=== PATIENT | female | born 1930 | race Caucasian/White ===

== ENCOUNTER 2017-04-21 18:10 | Inpatient (IN) | payer OTHER ==
--- NOTE | 2017-04-21 18:23 | EDPHY ---
H & P Smoking Status: Never smoked Time Seen by Provider: 04/21/17 18:15 HPI/ROS: CHIEF COMPLAINT: Left hip pain HISTORY OF PRESENT ILLNESS: 87-year-old woman arrives by ambulance after tripping on a rug at home and falling inside. History is from the who is arrived with the patient. She thinks she might have fallen outside on ice. She does have chronically poor memory. She has left hip pain which is much worse with movement or weight-bearing. Does not radiate. It is really mild at rest. Started just after the fall. Only other injury is left elbow laceration but she denies decrease in range of motion of the left elbow. No head injury or loss of consciousness and no neck or back pain. REVIEW OF SYSTEMS: Eye: no change in vision ENT: no sore throat Cardiac: no chest pain or syncope Pulmonary: no cough or SOB Abdomen: no vomiting, diarrhea, abdominal pain Musculoskeletal: Left hip pain but no back or neck pain Skin: Left elbow laceration Neuro: no headache Constitutional: no fever : no urinary symptoms A comprehensive 10 point review of systems is otherwise negative aside from elements mentioned in the history of present illness. PAST MEDICAL HISTORY: right femoral neck fracture fixed by Dr. Velasco in February of 2015. Parkinson's. Social history: General Appearance: Alert and conversant, cooperative. Eyes: No scleral icterus. ENT, Mouth: Normal mucous membranes. Respiratory: Normal respiratory effort, breath sounds equal, lungs are clear to auscultation. Cardiovascular: Regular rate and rhythm. Gastrointestinal: Abdomen is soft and non tender. Neurological: Alert, poor memory, cheerful and follows commands. Normal motor and sensory in both feet. Skin: Left elbow laceration. No bleeding or laceration over the left hip. Musculoskeletal: Left hip pain with internal rotation and axial loading. Pelvis is stable. No other extremity bony tenderness. Normal range of motion of left knee and ankle. No cervical thoracic or lumbar spine tenderness to palpation. Psychiatric: Not agitated. Emergency Department course/MDM: Wound care for the left elbow. X-rays of left elbow and left hip. 1845: Results and x-rays reviewed with the patient and family on the computer system. Admission to hospital with orthopedic consultation. [place] consulted for Rod. Labs to include CBC chemistry and type and screen. 1946: Additional IV 1 mg Dilaudid for left hip pain. (Ji Sigala) Constitutional: Initial Vital Signs Temperature (C) 36.6 C 04/21/17 18:10 Heart Rate 86 04/21/17 18:10 Respiratory Rate 16 04/21/17 18:10 Blood Pressure 172/98 H 04/21/17 18:10 O2 Sat (%) 91 L 04/21/17 18:10 Allergies/Adverse Reactions: No Allergies [NKDA] Allergy (Verified 04/30/10 18:31) No Allergies Allergy (Unknown, Uncoded 04/11/17 09:44) Home Medications: Medication Instructions Recorded Carbidopa/Levodopa 1 each PO TID 04/21/17 [Carbidopa-Levodopa 25-100 Tab] Citalopram Hydrobromide [Celexa] 40 mg PO DAILY 04/21/17 Diltiazem HCl [Cartia Xt] 120 mg PO HS 04/21/17 buPROPion XL [Wellbutrin Xl] 150 mg PO DAILY 04/21/17 Medical Decision Making - Diagnostics Imaging: I viewed and interpreted images myself Consult/Admit Bed Type: [place] 1909, [facility] to admit 1909 - Diagnostics EKG Interpretation: 12-lead EKG interpreted by me; official reading is in trace master. My interpretation is rate 96 probable sinus arrhythmia, difficult to interpret because of artifact on the patient's Parkinson's. (Ji Sigala) Imaging Results: Imaging Impressions Elbow X-Ray 04/21/17 18:20 Impression: Negative left elbow radiographs. Hip X-Ray 04/21/17 18:20 Impression: Nondisplaced proximal left femoral neck fracture. Procedures: I was asked by Dr. Ji Sigala to repair left elbow laceration. Laceration repair. Verbal consent was obtained from the patient. The 4 cm irregular laceration on the left elbow was anesthetized using 1% lidocaine with epinephrine. The wound was irrigated with saline, draped and explored to its base with a gloved finger. There were no deep structures involved. No tendon injury was identified. The wound was repaired with 4 0 Ethilon, 5 sutures. The wound repair was complex. The procedure was performed by myself. (Oksana Kebede) Differential Diagnosis: The differential for left hip pain considered including but not limited to femoral neck fracture, femur fracture, pelvic fracture, hip contusion. (Ji Sigala) - Data Points Laboratory Results: Laboratory Results 04/21/17 19:00 04/21/17 19:00 04/21/17 04/21/17 04/21/17 19:00 19:00 19:00 WBC 8.04 10^3/uL 10^3/uL (3.80-9.50) RBC 5.16 10^6/uL 10^6/uL (4.18-5.33) Hgb 16.2 g/dL g/dL (12.6-16.3) Hct 46.3 % % (38.0-47.0) MCV 89.7 fL fL (81.5-99.8) MCH 31.4 pg pg (27.9-34.1) MCHC 35.0 g/dL g/dL (32.4-36.7) RDW 12.3 % % (11.5-15.2) Plt Count 228 10^3/uL 10^3/uL (150-400) MPV 9.9 fL fL (8.7-11.7) Neut % (Auto) 75.1 % H % (39.3-74.2) Lymph % (Auto) 14.9 % L % (15.0-45.0) Bremer % (Auto) 7.0 % % (4.5-13.0) Eos % (Auto) 2.0 % % (0.6-7.6) Baso % (Auto) 0.4 % % (0.3-1.7) Nucleat RBC Rel Count 0.0 % % (0.0-0.2) Absolute Neuts (auto) 6.04 10^3/uL 10^3/uL (1.70-6.50) Absolute Lymphs (auto) 1.20 10^3/uL 10^3/uL (1.00-3.00) Absolute Monos (auto) 0.56 10^3/uL 10^3/uL (0.30-0.80) Absolute Eos (auto) 0.16 10^3/uL 10^3/uL (0.03-0.40) Absolute Basos (auto) 0.03 10^3/uL 10^3/uL (0.02-0.10) Absolute Nucleated RBC 0.00 10^3/uL 10^3/uL (0-0.01) Immature Gran % 0.6 % % (0.0-1.1) Immature Gran # 0.05 10^3/uL 10^3/uL (0.00-0.10) Sodium 139 mEq/L mEq/L (134-144) Potassium 4.0 mEq/L mEq/L (3.5-5.2) Chloride 105 mEq/L mEq/L (97-110) Carbon Dioxide 27 mEq/l mEq/l (22-31) Anion Gap 7 mEq/L L mEq/L (8-16) BUN 17 mg/dL mg/dL (7-23) Creatinine 0.8 mg/dL mg/dL (0.6-1.0) Estimated GFR > 60 Glucose 95 mg/dL mg/dL (70-100) Calcium 9.9 mg/dL mg/dL (8.5-10.4) Patient ABO/Rh Pending Antibody Screen Pending Medications Given: Discontinued Medications Hydromorphone HCl (Dilaudid) 0.5 mg IVP EDNOW ONE Stop: 04/21/17 19:05 Last Admin: 04/21/17 19:05 Dose: 0.5 mg Departure - Departure Disposition: [facility] Inpatient Acute Clinical Impression: Fracture of femoral neck, left Qualifiers: Encounter type: initial encounter Fracture type: closed Qualified Code(s): S72.002A - Fracture of unspecified part of neck of left femur, initial encounter for closed fracture Laceration of left elbow Qualifiers: Encounter type: initial encounter Qualified Code(s): S51.012A - Laceration without foreign body of left elbow, initial encounter Condition: Good
[2017-04-21] MEDS ORDERED: HYDROmorphONE/DILAUDID 1 MG/ML INJ ONE (18:53)
[2017-04-21] MEDS ORDERED: HYDROmorphONE/DILAUDID 1 MG/ML INJ IVP ONE ×3 (19:04→20:45)
[2017-04-21 19:21] LABS: PLATELET COUNT 228 10^3/uL (150-400)
--- NOTE | 2017-04-21 19:58 | CPEKG ---
Heart Rate: 96 RR Interval: 625 P-R Interval: 180 QRSD Interval: 120 QT Interval: 472 QTC Interval: 597 QRS Combined Locks: -16 T Wave Combined Locks: 101 EKG Severity - ABNORMAL ECG - EKG Impression: SINUS ARRHYTHMIA, RATE 0-0 EKG Impression: ARTIFACT FROM PATIENT'S PARKINSONS EKG Impression: NONSPECIFIC INTRAVENTRICULAR CONDUCTION DELAY EKG Impression: PROBABLE LVH WITH SECONDARY REPOL ABNRM Electronically Signed By: Ji Sigala 21-Apr-2017 19:59:54
[2017-04-21] MEDS ORDERED: ONDANSETRON 4 MG/2 ML VIAL ONE (20:52)
[2017-04-21] MEDS ORDERED: ONDANSETRON 4 MG/2 ML VIAL IVP ONE (20:54)
[2017-04-21] MEDS: ACETAMINOPHEN 325 MG TAB PO PRN (21:29)
[2017-04-21] MEDS: CARBIDOPA/LEVODOPA 25 MG/100 MG TAB PO SCH (21:29)
--- NOTE | 2017-04-21 21:30 | GHP ---
[f rep st] HISTORY AND PHYSICAL DATE OF ADMISSION: 04/21/2017 CHIEF COMPLAINT: Left hip pain after a fall. HISTORY OF PRESENT ILLNESS: This is an 87-year-old female, who apparently slipped on a rug, per EMS and ER, although she states she slipped on ice. She fell on her left hip and now has a hip fracture. She denies any syncope. She is a fairly poor historian. She does admit to having Parkinson diseas e. She denies any cardiac history, although she is on diltiazem and appears to have seen a cardiolog ist here and there. She denies any other problems. REVIEW OF SYSTEMS: 10-point review of systems obtained. Other than stated above are negative. PAST MEDICAL HISTORY: 1. Parkinson's. 2. Depression. 3. Apparently hypertension. MEDICATIONS: Reviewed. SOCIAL HISTORY: No smoking. Lives with her . FAMILY HISTORY: Reviewed and noncontributory. PHYSICAL EXAM: VITAL SIGNS: Afebrile, blood pressure is 150/135, heart rate 85, oxygen saturation 9 2% on 2 L. GENERAL: Patient is well developed, no apparent distress. HEENT: Nonicteric sclerae. Extraocular movements intact. Moist mucous membranes. NECK: Supple. No thyromegaly. LUNGS: Good effort. Clear to auscultation bilaterally. CARDIOVASCULAR: Regular rate and rhythm. No murmurs, rubs, gallops. ABDOMEN: Positive bowel sounds. Soft, nontender, nondistended. No hepatosplenomega ly. EXTREMITIES: No clubbing, cyanosis, or edema. Left leg is shortened and externally rotated. N EUROLOGIC: Alert. Moving all 4 extremities. PSYCHIATRIC: Normal affect. LABS: CBC is normal. Chemistries normal. EKG has a lot of artifact from her Parkinson's but appear s to be in sinus rhythm. Hip x-ray shows a fracture. ASSESSMENT: This is an 87-year-old female presenting with a left hip fracture. PLAN: 1. Left hip fracture. Patient can proceed to surgery tomorrow. Will institute DVT prophylaxis afte rwards. She probably will need a group home facility. 2. Parkinson's. Will continue medications. 3. Hypertension. Continue diltiazem. 4. Depression. 5. Code status. Unclear, as her family is not with her right now. Will have to ask someone in the morning. /[id number]/MODL
[2017-04-22] MEDS: ACETAMINOPHEN 325 MG TAB PO PRN ×2 (06:11→12:46)
[2017-04-22] MEDS: buPROPion XL 150 MG TAB PO SCH (08:26)
[2017-04-22] MEDS: CITALOPRAM 20 MG TAB PO SCH (08:26)
[2017-04-22] MEDS: CARBIDOPA/LEVODOPA 25 MG/100 MG TAB PO SCH ×3 (08:27→22:25)
--- NOTE | 2017-04-22 08:34 | PDMN ---
Medical Necessity Medical necessity: Hip fx: L femoral neck fx --pending sgy [id number] hip fx -3 days
--- NOTE | 2017-04-22 09:51 | ASMTCMCOM ---
CM Note CM Note Notes: 04/22/2017 Case Management Note Reviewed chart. Dr. Nieves note anticipates need for [facility]. Met w/ pt and Rudi. Both in agreement with need for increased care. Pt is current with [facility] PT. Notified [facility] of admission. Discussed [facility] SNF's. Pt requested referrals to [facility] and [facility]. Referrals faxed via [facility]. Case Management d/c poc: To SNF pending auth from [facility] and acceptance by facility. Case management to follow. Date Signed: 04/22/2017 09:51 AM Electronically Signed By:Vanessa Chisholm RN
--- NOTE | 2017-04-22 13:28 | HOSPPROG ---
Hospitalist Progress Note Assessment/Plan: Patient is an 87-year-old female who slipped and fell on a rug. She had significant left hip pain after falling. She sustained a left hip fracture and will go to surgery today. Today is my 1st encounter with the patient. Chart reviewed. *Left hip fracture To go to OR today Started IV fluids Having significant pain from this, ordered morphine p.r.n. * gait instability resulting in a fall Patient shares she slipped on the ice * Parkinson's Will resume home medications * hypertension Blood pressure is stable on Diltiazem * depression on Celexa *DVT prophylaxis: per surgical services Subjective: Morena is c/o pain to her left hip. Objective: Vital Signs Temp Pulse Resp BP Pulse Ox 36.8 C 93 20 130/84 H 93 04/22/17 11:23 04/22/17 11:23 04/22/17 11:23 04/22/17 11:23 04/22/17 11:23 04/21/17 04/22/17 04/23/17 05:59 05:59 05:59 Intake Total 300 Output Total 300 175 Balance 0 -175 - Physical Exam Constitutional: uncomfortable, No not in pain (left hip) Eyes: PERRL Ears, Nose, Mouth, Throat: hearing normal Cardiovascular: regular rate and rhythym Respiratory: no respiratory distress Gastrointestinal: normoactive bowel sounds Skin: warm Musculoskeletal: joint tenderness (left hip), generalized weakness Psychiatric: interacting appropriately, encephalopathic ICD10 Worksheet Patient Problems: Problems Problem Status Onset Fracture of femoral neck, left Acute Laceration of left elbow Acute
[2017-04-22] MEDS ORDERED: LR 1,000 ML IV SCH (13:30)
--- NOTE | 2017-04-22 15:05 | ASMTCMCOM ---
CM Note CM Note Notes: Stuart Jacques with [facility] reports today they are on lock down due to noro virus and cannot accept pt admissions. The state will have them assess day by day on if they can accept new admissions. Date Signed: 04/22/2017 03:04 PM Electronically Signed By:MANDY Lundy
[2017-04-22] MEDS ORDERED: POLYMYXIN B SULFATE 500,000 UNIT/10 ML SYR IRR ONE ×2 (16:24→18:08)
[2017-04-22] MEDS ORDERED: BUPIVACAINE/EPI 0.5% 30 ML SDV ONE (16:24)
[2017-04-22] MEDS ORDERED: fentaNYL 100 MCG/2 ML INJ ONE ×3 (16:57→20:41)
[2017-04-22] MEDS ORDERED: PROPOFOL/EMULSION 500 MG/50 ML BOTTLE IV ONE (16:57)
[2017-04-22] MEDS ORDERED: ALBUMIN 5% 250 ML BOTTLE IV ONE ×2 (17:06→19:10)
--- NOTE | 2017-04-22 18:04 | PDANEPAE ---
ANE Past Medical History - Cardiovascular History Hx Hypertension: No Hx Arrhythmias: No Hx Chest Pain: No Hx Coronary Artery / Peripheral Vascular Disease: No Hx CHF / Valvular Disease: No Hx Palpitations: No - Pulmonary History Hx COPD: No Hx Asthma/Reactive Airway Disease: No Hx Recent Upper Respiratory Infection: No Hx Oxygen in Use at Home: No Hx Sleep Apnea: No Sleep Apnea Screening Result - Last Documented: Negative - Neurologic History Hx Cerebrovascular Accident: No Hx Seizures: No Hx Dementia: No Neurologic History Comment: PARKINSONS - Endocrine History Hx Diabetes: No - Renal History Hx Renal Disorders: No - Liver History Hx Hepatic Disorders: No - Neurological & Psychiatric Hx Hx Neurological and Psychiatric Disorders: No - Cancer History Hx Cancer: Yes Cancer History Comment: 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 - Congenital Disorder History Hx Congenital Disorders: No - GI History Hx Gastrointestinal Disorders: No - Other Health History Other Health History: NONE - Chronic Pain History Chronic Pain: Yes (RIGHT HIP) - Surgical History Prior Surgeries: RIGHT BREAST LUMPECTOMY 1987 ANE Review of Systems Review of Systems: ANE Patient History - Allergies Allergies/Adverse Reactions: No Allergies [NKDA] Allergy (Verified 04/22/17 15:42) - Home Medications Home Medications: Carbidopa/Levodopa [Carbidopa-Levodopa 25-100 Tab] 1 each PO TID 04/21/17 [Last Taken 04/21/17] Citalopram Hydrobromide [Celexa] 40 mg PO DAILY 04/21/17 [Last Taken 04/21/17] Diltiazem HCl [Cartia Xt] 120 mg PO HS 04/21/17 [Last Taken 04/20/17] buPROPion XL [Wellbutrin Xl] 150 mg PO DAILY 04/21/17 [Last Taken 04/21/17] Rivastigmine [Exelon 4.6mg/24 hours] 1 each TD DAILY 04/22/17 [Last Taken ] - NPO status NPO Since - Liquids (Date): 04/22/17 NPO Since - Liquids (Time): 09:00 NPO Since - Solids (Date): 04/22/17 NPO Since - Solids (Time): 09:00 - Smoking Hx Smoking Status: Never smoked ANE Labs/Vital Signs - Labs Result Diagrams: 04/21/17 19:00 04/21/17 19:00 - Vital Signs Blood Pressure: 130/84 Heart Rate: 93 Respiratory Rate: 20 O2 Sat (%): 93 Height: 152.4 cm Weight: 53.5 kg ANE Physical Exam - Airway Neck exam: FROM, decreased ROM Mallampati Score: Class 1 Mouth exam: normal dental/mouth exam - Pulmonary Pulmonary: no respiratory distress, no rales or rhonchi, clear to auscultation - Cardiovascular Cardiovascular: regular rate and rhythym, no murmur, rub, or gallop - ASA Status ASA Status: IV ANE Anesthesia Plan Anesthesia Plan: general endotracheal anesthesia
[2017-04-22] MEDS ORDERED: BACITRACIN 50,000 UNITS/10 ML SYR IRR ONE (18:08)
[2017-04-22] MEDS ORDERED: THROMBIN (BOVINE) 5,000 UNIT VIAL TP ONE (18:09)
[2017-04-22] MEDS ORDERED: CALCIUM CHLORIDE 1 GM/10 ML INJ ONE ×3 (18:09→19:26)
[2017-04-22] MEDS ORDERED: RANITIDINE 50 MG/2 ML VIAL ONE (18:14)
[2017-04-22] MEDS ORDERED: ROCURONIUM 50 MG/5 ML VIAL ONE (18:14)
[2017-04-22] MEDS ORDERED: LIDOCAINE 2% 5 ML SDV ONE (18:14)
[2017-04-22] MEDS ORDERED: ROPI/epINEPH/KETOROLAC/morphINE IU ONE (19:00)
[2017-04-22] MEDS ORDERED: SUGAMMADEX SODIUM 200 MG/2 ML VIAL IVP ONE (19:21)
[2017-04-22] MEDS ORDERED: TRANEXAMIC ACID 3,000 MG in NS 50 ML IRR ONE (20:00)
[2017-04-22] MEDS ORDERED: HYDROCODONE/APAP 5/325 TAB PO PRN (20:13)
--- NOTE | 2017-04-22 20:13 | POSTOPPROG ---
Post Op Note Date of Operation: 04/22/17 Surgeon: Indigo Hare Civil Engineering Assistant: coltrain Anesthesiologist: abbie Anesthesia: GET(General Endotracheal) Pre-op Diagnosis: l hip fx Procedure: l hip shadi with fluoro Inf/Abcess present in the surg proc area at time of surgery?: No Depth: Deep Incisional (Fascial) EBL: 100-500
[2017-04-22] MEDS ORDERED: TAPENTADOL HCL 50 MG TAB PO PRN (20:16)
[2017-04-22] MEDS ORDERED: LR 500 ML IV PRN (20:35)
[2017-04-22] MEDS ORDERED: ALBUTEROL 3 ML DEYVIAL IH PRN (20:35)
[2017-04-22] MEDS ORDERED: ENALAPRILAT DIHYDRATE 1.25 MG/ML VIAL IVP PRN (20:35)
[2017-04-22] MEDS ORDERED: NALOXONE HCL 0.4 MG/ML INJ IVP PRN (20:35)
--- NOTE | 2017-04-22 20:37 | POSTANESTH ---
Post Anesthetic Evaluation Cardiovascular Status: Normal, Stable, Similar to Pre-Op Cond Respiratory Status: Similar to Pre-op Cond., Tx Decrease in SpO2 Level of Consciousness/Mental Status: Can Participate in Eval Pain Control: Adequate, Prn Tx Ordered Nausea/Vomiting Control: Adequate, Prn Tx Ordered Complications Possibly Related to Anesthesia: None Noted
[2017-04-22] MEDS: fentaNYL 100 MCG/2 ML INJ IVP PRN ×2 (20:44→21:27)
[2017-04-22] MEDS ORDERED: ONDANSETRON 4 MG/2 ML VIAL ONE (20:48)
[2017-04-22] MEDS: ONDANSETRON 4 MG/2 ML VIAL IVP PRN (20:54)
[2017-04-22 21:10] LABS: PLATELET COUNT 167 10^3/uL (150-400)
--- NOTE | 2017-04-22 21:34 | GOP ---
[f rep st] OPERATIVE REPORT DATE OF OPERATION: 04/22/2017 SURGEON: Indigo Hare MD ORE FEEDER: Eduin Manuel CSFA, LSA, whose presence was medically necessary. ANESTHESIA: Endotracheal intubation. PREOPERATIVE DIAGNOSIS: Left hip fracture. POSTOPERATIVE DIAGNOSIS: Left hip fracture. PROCEDURE PERFORMED: Left hip hemiarthroplasty with fluoroscopy. FINDINGS: INDICATIONS: This is an 87-year-old female, who fell the day prior and was noted to have a nondispla nalini femoral neck fracture. We decided to do surgery in order to alleviate the problem. DESCRIPTION OF PROCEDURE: The patient was brought to the operating room after the left side had been identified as the correct side by the patient, nurse, and physician. Once in the operating room, sh e was placed on a traction table. X-ray revealed displacement of the previously undisplaced fracture . It was decided at that point to do a hemiarthroplasty. Therefore, the left hip and flank were geraldine rilely prepped and draped in the usual fashion using GSI solution. Once prepped and draped, a linear incision was made 2 cm lateral and inferior to the ASIS and heading in a 15-degree posterior directi on. With sharp dissection, this was carried down through the skin and subcutaneous layer, with bleed ing controlled using electrocautery. The fascia overlying the TFL was incised in line with its fiber s, with the muscle belly retracted laterally. The vessels at the base of the fascial sheath were cau terized. Deeper dissection was carried down onto the hip capsule. The hip capsule was excised anter iorly. She was noted to have blood within the capsule. The hip capsule was irrigated. An oscillati ng saw was used to cut across the intertrochanteric line with the hip externally rotated 40 degrees, and a corkscrew was used to remove the femoral head in its entirety. Small broken fragments within t he capsule were also irrigated and removed, as well as the pulvinar deep in the socket of the acetabu lum. The acetabulum was sized and noted to be 44 mm in diameter. Dissection was done around the ant erior and superior portions of the femoral neck, removing the capsule from the area. Once the capsul e had been adequately released, the leg was able to be brought into extension. Medullary bone as wel l as the superior portion of the femoral neck were removed. A canal finder was placed within the fem oral canal, and multiple broaches were used up to a size 3, which was noted to fit securely. A trial reduction was performed. We noted that she had adequate fill of the proximal femur with the femoral component, as well as good length. Therefore, the hip was re-dislocated and placed in extension. T he trial was removed, and a size 3, 127-degree neck Accolade II stem from [place] was put into place. The trunnion was then washed and dried, and a 26, -3 femoral head was put into place, as well as a 26 x [address] bipolar component [address] into place. The hip was then able to be relocated. A joint cocktail w as injected around the remaining capsule and along the periosteum of the femur. The wound was thorou ghly irrigated with an antibiotic solution. It was closed in layers to include 0 Vicryls for the fas faisal overlying the TFL. 0 Vicryl and 2-0 Vicryl suture were then used to close the deep subcutaneous layers, and viral were used to close the skin. The wound was then dressed with Xeroform, 4 x 4, an d Tegaderm. She was completely undraped in the operating room and had the traction table removed. S he was transferred onto a bed and sent to the recovery room in good condition. /[id number]/MODL
--- NOTE | 2017-04-22 21:34 | GCON ---
[f rep st] CONSULTATION INPATIENT CONSULTATION DATE OF CONSULTATION: 04/22/2017 CHIEF COMPLAINT: Left hip pain. HISTORY OF PRESENT ILLNESS: The patient is an 87-year-old female, who fell at home earlier today. S he was having a significant amount of pain, was seen in the emergency room, diagnosed with a left hip fracture. I was asked to see the patient for further evaluation. She is neurologically intact to t he dorsal, lateral, and plantar portions of the foot. She does have pain to a logroll through the le lower extremity. X-ray exam reveals a nondisplaced fracture around the femoral neck. Options were discussed with the family to include continued conservative management, which would be fraught with complications versus operative treatment. They are for operative treatment. She will be, therefore, brought to the oper ating room as soon as time is available. /[id number]/MODL
[2017-04-22] MEDS: DILTIAZEM CD 120 MG CAP PO SCH (22:25)
[2017-04-23] MEDS: traMADol 50 MG TAB PO SCH ×4 (00:57→17:27)
[2017-04-23] MEDS: KETOROLAC 15 MG/1 ML SDV IVP SCH ×4 (00:57→17:27)
[2017-04-23 05:24] LABS: PLATELET COUNT 140 10^3/uL (150-400)
[2017-04-23] MEDS: CITALOPRAM 20 MG TAB PO SCH (08:41)
[2017-04-23] MEDS: CARBIDOPA/LEVODOPA 25 MG/100 MG TAB PO SCH ×3 (08:41→22:03)
[2017-04-23] MEDS: ACETAMINOPHEN 325 MG TAB PO PRN (08:41)
[2017-04-23] MEDS: buPROPion XL 150 MG TAB PO SCH (08:52)
--- NOTE | 2017-04-23 12:08 | ASMTCMCOM ---
CM Note CM Note Notes: Spoke with patient's family about SNF - let them know that [facility] is not in network. Gave them a list of SNFs in area. Referrals sent to [facility], [facility] and [facility]. Patient has [employer] so auth will likely delay discharge process. CM will follow. Date Signed: 04/23/2017 12:08 PM Electronically Signed By:Anamaria Melgar RN
--- NOTE | 2017-04-23 12:45 | SOAPPROG ---
SOAP Progress Note Assessment/Plan: Assessment: Plan: Subjective: states she's comfortable and has already walked around the room today dressing C&D with foot NVI cont PT Objective: Vital Signs Temp Pulse Resp BP Pulse Ox 36.9 C 78 20 117/74 94 04/23/17 08:00 04/23/17 08:00 04/23/17 08:00 04/23/17 08:00 04/23/17 08:00 Laboratory Results 04/23/17 05:17 04/23/17 05:17 04/22/17 04/23/17 04/24/17 05:59 05:59 05:59 Intake Total 300 1000 1050 Output Total 300 1125 500 Balance 0 -125 550 ICD10 Worksheet Patient Problems: Problems Problem Status Onset Fracture of femoral neck, left Acute Laceration of left elbow Acute
--- NOTE | 2017-04-23 13:06 | HOSPPROG ---
Hospitalist Progress Note Assessment/Plan: Patient is an 87-year-old female who slipped and fell on a rug. She had significant left hip pain after falling. She sustained a left hip fracture and will go to surgery today. *Left hip fracture POD #1 for left hip arthroplasty pain is well managed * gait instability resulting in a fall Patient shares she slipped on the ice said it was in their home * Parkinson's Will resume home medications has some underlying memory loss * hypertension, blood pressure low this morning, asymptomatic Blood pressure is stable on Diltiazem * depression on Celexa *DVT prophylaxis: initiate lmwh in a.m. *Plan: patient will need a SNF at ut Subjective: Morena is happy, has no complaints. Objective: Vital Signs Temp Pulse Resp BP Pulse Ox 36.7 C 92 18 92/58 L 90 L 04/23/17 12:15 04/23/17 12:15 04/23/17 12:15 04/23/17 12:15 04/23/17 12:15 Laboratory Results 04/23/17 05:17 04/23/17 05:17 04/22/17 04/23/17 04/24/17 05:59 05:59 05:59 Intake Total 300 1000 1050 Output Total 300 1125 500 Balance 0 -125 550 - Physical Exam Constitutional: no apparent distress, appears nourished, not in pain Eyes: PERRL Ears, Nose, Mouth, Throat: hearing normal Cardiovascular: regular rate and rhythym Respiratory: no respiratory distress Gastrointestinal: normoactive bowel sounds Skin: other (left hip with some swelling) Musculoskeletal: generalized weakness Psychiatric: interacting appropriately, not anxious, not encephalopathic, poor memory ICD10 Worksheet Patient Problems: Problems Problem Status Onset Fracture of femoral neck, left Acute Laceration of left elbow Acute
[2017-04-23] MEDS ORDERED: LACTULOSE 20 GM/30 ML UDCUP PO PRN (13:07)
[2017-04-23] MEDS ORDERED: BISACODYL 10 MG SUPP PR PRN (13:07)
[2017-04-23] MEDS: Rivastigmine [Exelon 4.6mg/24 Hours] 1 EACH TD SCH (13:13)
[2017-04-23] MEDS: ONDANSETRON DISINTEGRATING 4 MG TAB PO PRN (17:32)
[2017-04-23] MEDS: SENNOSIDES/DOCUSATE SODIUM TAB PO SCH (22:03)
[2017-04-23] MEDS: DILTIAZEM CD 120 MG CAP PO SCH (22:04)
[2017-04-24] MEDS: traMADol 50 MG TAB PO SCH ×4 (00:31→17:14)
[2017-04-24] MEDS: KETOROLAC 15 MG/1 ML SDV IVP SCH ×3 (00:31→12:45)
[2017-04-24] MEDS: Rivastigmine [Exelon 4.6mg/24 Hours] 1 EACH TD SCH (09:00)
[2017-04-24] MEDS: CARBIDOPA/LEVODOPA 25 MG/100 MG TAB PO SCH ×3 (09:46→22:04)
[2017-04-24] MEDS: SENNOSIDES/DOCUSATE SODIUM TAB PO SCH ×2 (09:46→22:04)
[2017-04-24] MEDS: buPROPion XL 150 MG TAB PO SCH (09:46)
[2017-04-24] MEDS: CITALOPRAM 20 MG TAB PO SCH (09:47)
[2017-04-24] MEDS: ENOXAPARIN 40 MG/0.4 ML SYR SC SCH (09:47)
[2017-04-24] MEDS: POLYETHYLENE GLYCOL 3350 17 GM PKT PO SCH (09:47)
[2017-04-24] MEDS: MAGNESIUM HYDROXIDE 30 ML UDCUP PO PRN (12:45)
--- NOTE | 2017-04-24 12:47 | HOSPPROG ---
Hospitalist Progress Note Assessment/Plan: Patient is an 87-year-old female who slipped and fell on a rug. She had significant left hip pain after falling. She sustained a left hip fracture and will go to surgery today. *Left hip fracture POD #2 for left hip arthroplasty pain is well managed * gait instability resulting in a fall Patient shares she slipped on the ice said it was in their home *anemia postop expected blood loss *nausea ?if from pain meds, Zofran prn * Parkinson's Will resume home medications has some underlying memory loss * hypertension, blood pressure low this morning, asymptomatic Blood pressure is stable on Diltiazem * depression on Celexa *DVT prophylaxis:lmwh *Plan: [place] SNF [place] Subjective: Morena is c/o some nausea, otherwise pain is minimal at left hip area. Objective: Vital Signs Temp Pulse Resp BP Pulse Ox 36.7 C 82 16 104/67 95 04/24/17 07:27 04/24/17 07:27 04/24/17 07:27 04/24/17 07:27 04/24/17 07:27 Laboratory Results 04/24/17 04:48 04/24/17 04:48 04/23/17 04/24/17 04/25/17 05:59 05:59 05:59 Intake Total 1000 1050 Output Total 1125 500 Balance -125 550 - Physical Exam Constitutional: no apparent distress, uncomfortable Eyes: PERRL Ears, Nose, Mouth, Throat: hearing normal Cardiovascular: regular rate and rhythym Respiratory: no respiratory distress Skin: warm, other (left hip w swelling) Musculoskeletal: generalized weakness Psychiatric: interacting appropriately, not anxious, not encephalopathic, poor memory ICD10 Worksheet Patient Problems: Problems Problem Status Onset Fracture of femoral neck, left Acute Laceration of left elbow Acute
[2017-04-24] MEDS: ONDANSETRON DISINTEGRATING 4 MG TAB PO PRN ×2 (12:51→17:47)
--- NOTE | 2017-04-24 14:01 | SOAPPROG ---
SOAP Progress Note Assessment/Plan: Assessment: Plan: Subjective: states her hip is sore but doing well and she has walked around the room today dressing C&D with foot NVI cont PT Objective: Vital Signs Temp Pulse Resp BP Pulse Ox 36.7 C 82 16 104/67 95 04/24/17 07:27 04/24/17 07:27 04/24/17 07:27 04/24/17 07:27 04/24/17 07:27 Laboratory Results 04/24/17 04:48 04/24/17 04:48 04/23/17 04/24/17 04/25/17 05:59 05:59 05:59 Intake Total 1000 1050 Output Total 1125 500 Balance -125 550 ICD10 Worksheet Patient Problems: Problems Problem Status Onset Fracture of femoral neck, left Acute Laceration of left elbow Acute
[2017-04-24] MEDS ORDERED: oxyCODONE IR 5 MG TAB PO PRN (15:14)
[2017-04-24] MEDS: ACETAMINOPHEN 500 MG TAB PO SCH ×2 (17:13→22:03)
[2017-04-24] MEDS: DILTIAZEM CD 120 MG CAP PO SCH (22:04)
[2017-04-25] MEDS: traMADol 50 MG TAB PO SCH ×5 (01:48→22:30)
[2017-04-25] MEDS: ONDANSETRON DISINTEGRATING 4 MG TAB PO PRN (05:36)
[2017-04-25] MEDS: POLYETHYLENE GLYCOL 3350 17 GM PKT PO SCH (08:16)
[2017-04-25] MEDS: ENOXAPARIN 40 MG/0.4 ML SYR SC SCH (08:16)
[2017-04-25] MEDS: buPROPion XL 150 MG TAB PO SCH (08:19)
[2017-04-25] MEDS: CARBIDOPA/LEVODOPA 25 MG/100 MG TAB PO SCH ×3 (08:20→20:08)
[2017-04-25] MEDS: CITALOPRAM 20 MG TAB PO SCH (08:22)
[2017-04-25] MEDS: Rivastigmine [Exelon 4.6mg/24 Hours] 1 EACH TD SCH (09:56)
[2017-04-25] MEDS: SENNOSIDES/DOCUSATE SODIUM TAB PO SCH ×2 (09:58→20:08)
[2017-04-25] MEDS: ACETAMINOPHEN 500 MG TAB PO SCH ×3 (09:58→20:07)
--- NOTE | 2017-04-25 12:04 | HOSPPROG ---
Hospitalist Progress Note Assessment/Plan: Patient is an 87-year-old female who slipped and fell on a rug. She had significant left hip pain after falling. She sustained a left hip fracture and will go to surgery today. *Left hip fracture POD #3 for left hip arthroplasty pain is well managed * gait instability resulting in a fall Patient shares she slipped on the ice said it was in their home *anemia postop expected blood loss *nausea ?if from pain meds, Zofran prn * Parkinson's Will resume home medications has some underlying memory loss * hypertension Blood pressure is stable on Diltiazem * depression on Celexa *DVT prophylaxis:lmwh *Plan: patient [place] need a SNF [place] tomorrow, prefer [facility] due to location, close to their home Subjective: Morena said pain is well managed, had some nausea yesterday, but that is better today. Objective: Vital Signs Temp Pulse Resp BP Pulse Ox 36.7 C 77 16 119/70 95 04/25/17 07:41 04/25/17 07:41 04/25/17 07:41 04/25/17 07:41 04/25/17 07:41 Laboratory Results 04/25/17 05:08 04/24/17 04:48 04/24/17 04/25/17 04/26/17 05:59 05:59 05:59 Intake Total 1050 150 Output Total 500 401 Balance 550 -401 150 - Physical Exam Constitutional: no apparent distress, appears nourished, not in pain Eyes: PERRL Ears, Nose, Mouth, Throat: hearing normal Cardiovascular: regular rate and rhythym Respiratory: no respiratory distress Skin: warm Musculoskeletal: generalized weakness Neurologic: AAOx3 Psychiatric: interacting appropriately, poor memory ICD10 Worksheet Patient Problems: Problems Problem Status Onset Fracture of femoral neck, left Acute Laceration of left elbow Acute
--- NOTE | 2017-04-25 13:34 | ASMTCMCOM ---
CM Note CM Note Notes: Spoke to patient and her . They would like her to go to [facility] or [facility]. Contacted [facility] and they accept [employer] Ins and could admit patient Tuesday in a private room. Patient and very happy about this. [facility] is close to where they live. Date Signed: 04/25/2017 01:34 PM Electronically Signed By:Tyra Hi LCSW
[2017-04-25] MEDS: DILTIAZEM CD 120 MG CAP PO SCH (20:09)
[2017-04-26] MEDS: ENOXAPARIN 40 MG/0.4 ML SYR SC SCH (08:11)
[2017-04-26] MEDS: ONDANSETRON 4 MG/2 ML VIAL IVP PRN ×2 (08:24→19:43)
[2017-04-26] MEDS: Rivastigmine [Exelon 4.6mg/24 Hours] 1 EACH TD SCH (08:27)
--- NOTE | 2017-04-26 09:25 | SOAPPROG ---
SOAP Progress Note Assessment/Plan: Assessment: Plan: Subjective: states she's nauseated but hip is fine dressing intact cont PT FU in office Objective: Vital Signs Temp Pulse Resp BP Pulse Ox 36.9 C 82 16 140/65 H 96 04/26/17 07:34 04/26/17 07:34 04/26/17 07:34 04/26/17 07:34 04/26/17 07:34 Laboratory Results 04/26/17 04:59 04/24/17 04:48 04/25/17 04/26/17 04/27/17 05:59 05:59 05:59 Intake Total 250 Output Total 401 600 Balance -401 -350 ICD10 Worksheet Patient Problems: Problems Problem Status Onset Fracture of femoral neck, left Acute Laceration of left elbow Acute
[2017-04-26] MEDS: CARBIDOPA/LEVODOPA 25 MG/100 MG TAB PO SCH ×3 (09:31→22:52)
[2017-04-26] MEDS: SENNOSIDES/DOCUSATE SODIUM TAB PO SCH ×2 (09:31→23:08)
[2017-04-26] MEDS: ACETAMINOPHEN 500 MG TAB PO SCH ×2 (09:31→16:19)
[2017-04-26] MEDS: POLYETHYLENE GLYCOL 3350 17 GM PKT PO SCH ×2 (09:32→10:39)
[2017-04-26] MEDS: CITALOPRAM 20 MG TAB PO SCH (09:32)
[2017-04-26] MEDS: traMADol 50 MG TAB PO SCH ×2 (10:34→16:19)
[2017-04-26] MEDS: buPROPion XL 150 MG TAB PO SCH (10:37)
[2017-04-26] MEDS ORDERED: NS 500 ML IV SCH (14:00)
--- NOTE | 2017-04-26 14:01 | HOSPPROG ---
Hospitalist Progress Note Assessment/Plan: Patient is an 87-year-old female who slipped and fell on a rug. She had significant left hip pain after falling. She sustained a left hip fracture and will go to surgery today. *Left hip fracture POD #4 for left hip arthroplasty pain is well managed * gait instability resulting in a fall Patient shares she slipped on the ice said it was in their home *anemia postop expected blood loss *nausea ?if from pain meds, Zofran prn was on scheduled tramadol, will make this prn give a fluid bolus, she appears dehydrated * Parkinson's Will resume home medications has some underlying memory loss * hypertension Blood pressure is stable on Diltiazem * depression on Celexa *DVT prophylaxis:lmwh *Plan: if improved, will dc to [facility] tomorrow, will give her fluids now. Subjective: Morena is feeling better this afternoon, but hasn't been eating much. Objective: Vital Signs Temp Pulse Resp BP Pulse Ox 36.9 C 82 16 140/65 H 96 04/26/17 07:34 04/26/17 07:34 04/26/17 07:34 04/26/17 07:34 04/26/17 07:34 Laboratory Results 04/26/17 04:59 04/24/17 04:48 04/25/17 04/26/17 04/27/17 05:59 05:59 05:59 Intake Total 250 300 Output Total 401 600 150 Balance -401 -350 150 - Physical Exam Constitutional: no apparent distress, not in pain Eyes: PERRL Ears, Nose, Mouth, Throat: hearing normal Cardiovascular: regular rate and rhythym Respiratory: no respiratory distress Gastrointestinal: normoactive bowel sounds Skin: warm Musculoskeletal: generalized weakness Neurologic: AAOx3 Psychiatric: interacting appropriately ICD10 Worksheet Patient Problems: Problems Problem Status Onset Fracture of femoral neck, left Acute Laceration of left elbow Acute
[2017-04-26] MEDS: MAGNESIUM HYDROXIDE 30 ML UDCUP PO PRN (15:06)
[2017-04-26] MEDS ORDERED: IBUPROFEN 200 MG TAB PO PRN (16:58)
[2017-04-26] MEDS ORDERED: traMADol 50 MG TAB PO PRN (16:59)
[2017-04-26] MEDS: PROMETHAZINE HCL 25 MG/ML INJ IVP PRN (21:40)
[2017-04-26] MEDS: DILTIAZEM CD 120 MG CAP PO SCH (22:51)
[2017-04-27] MEDS: PROMETHAZINE HCL 25 MG/ML INJ IVP PRN ×3 (00:23→06:25)
[2017-04-27] MEDS: ACETAMINOPHEN 500 MG TAB PO SCH ×4 (01:59→23:03)
[2017-04-27] MEDS: ENOXAPARIN 40 MG/0.4 ML SYR SC SCH (08:56)
[2017-04-27] MEDS ORDERED: MAG HYDROX/AL HYDROX/SIMETH 30 ML UDCUP PO PRN (09:10)
[2017-04-27] MEDS: CITALOPRAM 20 MG TAB PO SCH ×2 (10:09→12:07)
[2017-04-27] MEDS: CARBIDOPA/LEVODOPA 25 MG/100 MG TAB PO SCH ×4 (10:11→22:01)
[2017-04-27] MEDS: buPROPion XL 150 MG TAB PO SCH ×2 (10:11→12:06)
[2017-04-27] MEDS: FAMOTIDINE 20 MG TAB PO SCH ×2 (10:17→23:45)
[2017-04-27] MEDS: POLYETHYLENE GLYCOL 3350 17 GM PKT PO SCH (10:17)
[2017-04-27] MEDS: SENNOSIDES/DOCUSATE SODIUM TAB PO SCH ×2 (10:18→23:45)
[2017-04-27] MEDS: Rivastigmine [Exelon 4.6mg/24 Hours] 1 EACH TD SCH (10:18)
--- NOTE | 2017-04-27 13:19 | HOSPPROG ---
Hospitalist Progress Note Assessment/Plan: Patient is an 87-year-old female who slipped and fell on a rug. She had significant left hip pain after falling. She sustained a left hip fracture and will go to surgery today. *Left hip fracture POD #5 for left hip arthroplasty pain is well managed * gait instability resulting in a fall Patient shares she slipped on the ice said it was in their home *anemia postop expected blood loss *nausea Zofran prn Patient has not been taking any narcotics abd xray shows nothing acute abd is bloated, appears constipated, fleets enema x 1 mow * Parkinson's Will resume home medications has some underlying memory loss * hypertension Blood pressure is stable on Diltiazem * depression on Celexa *DVT prophylaxis:lmwh *Plan: dc to [facility] when better. Family is concerned the is Morena is not motivated to get out of bed and frequently says that she is done. I suspect much of this is because she is nauseated and also has been struggling with ongoing Parkinson's. She has not been eating or drinking much. Will start her on IV fluids. Nursing staff to give her a fleets enema x1. Will change her diet to a clear liquid diet to see if this helps. Also a trial of Toradol 15 mg IV x1. This really helped after surgery but was discontinued due to her age. Consider resuming this medication if it helped today. Will recheck labs in the morning Subjective: Morena says she is weak, feels poorly, doesn't want to get oob. Has ongoing nausea. Objective: Vital Signs Temp Pulse Resp BP Pulse Ox 36.3 C 86 22 H 145/77 H 93 04/27/17 07:30 04/27/17 07:30 04/27/17 07:30 04/27/17 07:30 04/27/17 07:30 Laboratory Results 04/26/17 04:59 04/24/17 04:48 04/26/17 04/27/17 04/28/17 05:59 05:59 05:59 Intake Total 250 1200 Output Total 600 550 Balance -350 650 - Physical Exam Constitutional: chronically ill appearing, uncomfortable Eyes: PERRL Ears, Nose, Mouth, Throat: hearing normal Cardiovascular: regular rate and rhythym Respiratory: no respiratory distress Gastrointestinal: No normoactive bowel sounds (hypoactive , non tender, bloated) Skin: warm, No normal color (pale) Musculoskeletal: generalized weakness Neurologic: AAOx3 Psychiatric: depressed, poor memory ICD10 Worksheet Patient Problems: Problems Problem Status Onset Fracture of femoral neck, left Acute Laceration of left elbow Acute
[2017-04-27] MEDS ORDERED: KETOROLAC 15 MG/1 ML SDV IVP ONE (13:52)
[2017-04-27] MEDS ORDERED: D5W 1/2 NS 1,000 ML IV SCH (14:00)
[2017-04-27 22:05] VITALS: RESP 16
[2017-04-27] MEDS: DILTIAZEM CD 120 MG CAP PO SCH (23:07)
[2017-04-28] MEDS: SENNOSIDES/DOCUSATE SODIUM TAB PO SCH (08:10)
[2017-04-28 08:22] VITALS: BP 139/84; PULSE 83; TEMP 97.6; O2SAT 97
[2017-04-28] MEDS: buPROPion XL 150 MG TAB PO SCH (08:22)
[2017-04-28] MEDS: CARBIDOPA/LEVODOPA 25 MG/100 MG TAB PO SCH ×2 (08:22→16:20)
[2017-04-28] MEDS: CITALOPRAM 20 MG TAB PO SCH (08:22)
[2017-04-28] MEDS: ACETAMINOPHEN 500 MG TAB PO SCH ×2 (08:23→16:21)
[2017-04-28] MEDS: ENOXAPARIN 40 MG/0.4 ML SYR SC SCH (08:23)
[2017-04-28] MEDS: FAMOTIDINE 20 MG TAB PO SCH (08:24)
[2017-04-28] MEDS: POLYETHYLENE GLYCOL 3350 17 GM PKT PO SCH (08:24)
[2017-04-28 09:10] LABS: PLATELET COUNT 287 10^3/uL (150-400)
--- NOTE | 2017-04-28 10:00 | PDIAF ---
- Diagnosis Diagnosis: hip fx Code Status: Full Code - Medication Management Discharge Medications: Medications to Continue on Transfer Carbidopa/Levodopa [Carbidopa-Levodopa 25-100 Tab] 1 each PO TID 04/21/17 [Last Taken 04/21/17] Citalopram Hydrobromide [Celexa] 40 mg PO DAILY 04/21/17 [Last Taken 04/21/17] Diltiazem HCl [Cartia Xt] 120 mg PO HS 04/21/17 [Last Taken 04/20/17] buPROPion XL [Wellbutrin 150mg XL] 150 mg PO DAILY 04/21/17 [Last Taken 04/21/17 ] Rivastigmine [Exelon 4.6mg/24 hours] 1 each TD DAILY 04/22/17 [Last Taken ] Acetaminophen [Tylenol ES 500 mg (*)] 1,000 mg PO TID tab 04/28/17 [Last Taken Unknown] Enoxaparin [Lovenox 40 MG (*)] 40 mg SC DAILY syr 04/28/17 [Last Taken Unknown] Famotidine [Pepcid 20 MG (*)] 20 mg PO BID tab 04/28/17 [Last Taken Unknown] Ibuprofen [Motrin (*)] 400 mg PO Q6HRS PRN tab 04/28/17 [Last Taken Unknown] Ondansetron Odt [Zofran Odt 4 mg (*)] 4 mg PO Q4HRS PRN tab 04/28/17 [Last Taken Unknown] Polyethylene Glycol 3350 [Miralax 17 gm (*)] 17 gm PO DAILY pkt 04/28/17 [Last Taken Unknown] Sennosides/Docusate Sodium [Senokot-S] 1 - 2 tab PO BID tab 04/28/17 [Last Taken Unknown] Discharge Medications: Refer to the Discharge Home Medication list for PRN reason. PICC Care - Routine: N/A - Orders Services needed: Registered Nurse, Physical Therapy, Occupational Therapy Diet Recommendation: no restrictions on diet - Follow Up Care Current Providers and Referrals: Patient,NotPresent [Unknown] - As per Instructions
[2017-04-28] MEDS: Rivastigmine [Exelon 4.6mg/24 Hours] 1 EACH TD SCH (13:21)
--- NOTE | 2017-04-28 14:58 | GDS ---
[f rep st] DISCHARGE SUMMARY DISCHARGE DIAGNOSES: 1. Constipation. 2. Left hip fracture. 3. Gait instability. 4. Anemia. 5. Nausea. 6. Parkinson disease. 7. Hypertension. 8. Depression. CONSULTATIONS: Dr. Hare of Orthopedics. STUDIES AND PROCEDURES: 1. Hip x-ray. 2. Elbow x-ray. 3. Left hip hemiarthroplasty. PHYSICAL EXAM: GENERAL: The patient is alert. VITAL SIGNS: Afebrile at 36.4, pulse is 83, respira tory rate 16, blood pressure is 139/84, she is saturating 97% on 2 L. I have seen and evaluated the patient on the day of discharge. HOSPITAL COURSE: The patient is an 87-year-old female, who presented to the emergency room after suf fering a mechanical fall. She was evaluated and diagnosed with: 1. Left hip fracture. During this hospitalization she received a consultation from Dr. Hare of Orth opedics. Surgical intervention was performed. The patient is doing well. She is postop day 6 and h er pain is well managed. 2. Gait instability. This is likely secondary to the patient's underlying Parkinson's disease. She will continue physical therapy. 3. Anemia. This is acute blood loss anemia expected in the postoperative setting and stable. 4. Nausea in the setting of constipation. The patient's nausea has completely resolved as well as he r constipation. She did require a Fleet enema to resolve this condition, however, she appears to be r eturned to her baseline. 5. Parkinson's. Her home medications have been continued. The patient does have some mild underlyin g memory issues as well as memory loss. She does appear to be at her baseline. 6. Hypertension. Her blood pressure is stable. She has been continued on her diltiazem. 7. History of depression. Her Celexa has been continued during this hospital course. DISPOSITION: The patient will be discharged to [facility] for further rehabilitation and management. There are no pending studies. DISCHARGE MEDICATIONS: Please refer to EMR form. The patient's Lovenox has been continued at the ti me of disposition. I have not adjusted any of her other previously prescribed home medications to th e best of my knowledge. I spent greater than 35 minutes in the care, coordination, and management of this patient's disposition. FOLLOW UP: Follow up will be with Dr. Hare as well as the patient's primary care physician. /[id number]/MODL
--- NOTE | 2017-04-28 16:22 | ASMTCMCOM ---
CM Note CM Note Notes: Pt medically stable for d/c to [facility] who have insurance authorization. Orders sent in [employer]. Jose L Jacques () set up wc transport for 1630. Pt family updated. Date Signed: 04/28/2017 04:22 PM Electronically Signed By:MANDY Lundy
--- NOTE | 2017-04-29 14:49 | ASDISCHSUM ---
Discharge Information Plan Status:SNF Medically Cleared to Leave:04/27/2017 Discharge Date:04/28/2017 04:59 PM CM D/C Disposition:Care Home Facility ADT D/C Disposition:Care Home Facility Projected Discharge Date:04/28/2017 11:00 AM Transportation at D/C:Family Discharge Delay Reason: Follow-Up Date:04/28/2017 11:00 AM Discharge Slot: Final Diagnosis:L femoral neck fx Placement Information Referral Type:*Skilled Nursing/SNF Referral ID:[id number] Provider Name:[facility] Address 1:[address] Address 2: City:[place] Selection Factors: State:[place] Patient Contact Information Contact Name:CHANELLE Relationship: Address:[facility] [address] City:[place] Alternate Phone: State/Zip Code:[place] [address] Email: Financial Information Financial Class:Medicare Advantage Plans Primary Plan Desc:[employer] PPO MEDICARE Primary Plan Number:[id number] Secondary Plan Desc: Secondary Plan Number: Assessment Information [facility] CM Progress Note CM Note CM Note Notes: 04/22/2017 Case Management Note Reviewed chart. Dr. Nieves note anticipates need for Care Home Facility Rehab. Met w/ pt and sundar Grijalva. Both in agreement with need for increased care. Pt is current with [facility]. Notified [facility] of admission. Discussed [facility] SNF's. Pt requested referrals to [facility] and [facility]. Referrals faxed via [employer]. Case Management d/c poc: To SNF pending auth from [employer] and acceptance by facility. Case management to follow. Date Signed: 04/22/2017 09:51 AM Electronically Signed By:Vanessa Chisholm RN [facility] CM Progress Note CM Note CM Note Notes: Stuart Jacques with [facility] reports today they are on lock down due to noro virus and cannot accept pt admissions. The state will have them assess day by day on if they can accept new admissions. Date Signed: 04/22/2017 03:04 PM Electronically Signed By:MANDY Lundy [facility] CM Progress Note CM Note CM Note Notes: Spoke with patient's family about SNF - let them know that [facility] is not in network. Gave them a list of SNFs in area. Referrals sent to [facility], [facility], [facility] and [facility]. Patient has [employer] so auth will likely delay discharge process. CM will follow. Date Signed: 04/23/2017 12:08 PM Electronically Signed By:Anamaria Melgar RN [facility] CM Progress Note CM Note CM Note Notes: Spoke to patient and her . They would like her to go to [facility] or [facility]. Contacted [facility] and they accept [employer] Ins and could admit patient Tuesday in a private room. Patient and very happy about this. [facility] is close to where they live. Date Signed: 04/25/2017 01:34 PM Electronically Signed By:Tyra Hi LCSW [facility] CM Progress Note CM Note CM Note Notes: Pt medically stable for d/c to [facility] who have insurance authorization. [facility] [employer] Pt family updated. Date Signed: 04/28/2017 04:22 PM Electronically Signed By:MANDY Lundy Intervention Information Intervention Type:*IM-Signed Date of Service:04/28/2017 12:04 PM Patient Type:Inpatient Staff Member:Vivien Foreman Hours: Discipline: Severity: Comment:
== END 2017-04-28 16:59 | DRG 470 ==
LOC: EDUNIT# → F3N 21:03
PROVIDERS: ADMIT Internal Medicine; ATTEND Internal Medicine
PROC: 0SRS03Z Replacement of Left Hip Joint, Femoral Surface with Ceramic Synthetic Substitute, Open Approach (ICD-10-PCS; principal; 2017-04-22 16:15)
DX: S72.002A Fracture of unspecified part of neck of left femur, initial encounter for closed fracture (principal); W01.0XXA Fall on same level from slipping, tripping and stumbling without subsequent striking against object, initial encounter; Y92.009 Unspecified place in unspecified non-institutional (private) residence as the place of occurrence of the external cause; D62 Acute posthemorrhagic anemia; G20 Parkinson's disease; I10 Essential (primary) hypertension; F32.9 Major depressive disorder, single episode, unspecified; K59.00 Constipation, unspecified; R26.81 Unsteadiness on feet
CPT/HCPCS: 96374; 97110-GP; 97116-GP; 97161-GP; 97166-GO; 97530-GO; 97530-GP; 97535-GO; G8978-GP-CL; G8979-GP-CJ; J0171; J0690; J1170; J1650; J1885; J2405; J2550; J2704; J2780; J2795; J3010; P9041